=== PATIENT | female | born 2005 | race Two or more races ===

== ENCOUNTER 2025-02-07 22:38 | Emergency (ER) | payer SELFPAY ==
[~2025-02-07] VITALS: Ht 170.2 cm; Wt 51.9 kg
[2025-02-07 23:00] VITALS: BP 118/79; PULSE 85; RESP 16; TEMP 98.2; O2SAT 100
[2025-02-07 23:18] LABS: Basophils # (auto) 0.1 10 ^3/uL (0-0.2); Basophils % (auto) 0.3 % (0.0-2.0); Eosinophils # (auto) 0 10 ^3/uL (0-0.8); Hemoglobin 12.9 g/dL (12.2-16.2); Lymphocytes % (auto) 5.4 % (10.0-50.0); Mean Corpuscular Hemoglobin 28.1 pg (28.0-32.0); Mean Corpuscular Volume 82.9 fL (80.0-100.0); Monocytes # (auto) 0.8 10 ^3/uL (0-1.3); Neutrophils # (auto) 17.5 10 ^3/uL (1.6-8.6); Neutrophils % (auto) 90.3 % (37.0-80.0); Platelet Count (auto) 251 10^3/uL (140-450); Red Blood Cells 4.59 10^6/uL (4.0-5.20); Red Cell Distribution Width 13.3 % (11.8-14.3); White Blood Cell 19.4 10^3/uL (4.4-10.8)
[2025-02-07 23:35] LABS: Alanine Aminotransferase 13 U/L (7-40); Alkaline Phosphatase 59 U/L (46-116); Anion Gap 8 (5-15); BUN/Creatinine Ratio 9.3 (10.0-20.0); Bilirubin, Total 0.8 mg/dL (0.2-1.0); Calcium 10.2 mg/dL (8.7-10.4); Carbon Dioxide 27 mmol/L (20-31); Chloride 105 mmol/L (98-107); Glucose 104 mg/dL (74-106); Lipase 28 U/L (12-53); Potassium 3.8 mmol/L (3.5-5.1); Sodium 140 mmol/L (136-145); Total Protein 7.6 g/dL (5.7-8.2)
[2025-02-07 23:38] LABS: Albumin 4.9 g/dL (3.2-4.8); Aspartate Aminotransferase 12 U/L (13-40); Blood Urea Nitrogen 8 mg/dL (9-23)
[2025-02-07 23:49] LABS: Blood Alcohol < 3.0 mg/dL (<10)
[2025-02-08] MEDS ORDERED: CIPR-173 PO (02:50)
[2025-02-08] MEDS ORDERED: ZOFR4T PO (02:50)
[2025-02-08] MEDS ORDERED: DICY10CA PO (02:50)
[2025-02-08] MEDS ORDERED: ACET500T58 PO (02:50)
--- NOTE | 2025-02-08 02:51 | ED.PDOC ---
GI ASSESSMENT HPI Comments This patient is a 19-year-old female who arrives the ED today with complaints of diffuse abdominal pain that began several hours ago and has continued. Patient denies any recent travel or new food sources. Patient states the pain came on quickly and has been relatively unrelenting. Patient appears to be possibly intoxicated at time of evaluation. Patient denies any fever, but states intermittent nausea or vomiting. Vital signs were stable on arrival. Chief Complaint: Abdominal Pain Time Seen by MD: 22:40 Primary Care Provider: n/a Reviewed Notes: Nurses Notes Allergies: Coded Allergies: NO KNOWN ALLERGIES (Unverified , 02/07/25) Information Source: Patient Mode of Arrival: Wheelchair Timing: Hours Duration: Since onset Prehospital treatment: None Quality: Aching, Cramping Vomitus: Bilious, Food Particles, Soft, Watery, None Severity: Moderate Recent: None Recent Hx of: None Pain Location: Diffuse, Periumbilical Associated sign and symptoms: Nausea, Vomiting, Abdominal Pain Past Medical History PAST MEDICAL HISTORY: Denies Surgical History: Denies all surgeries [employer] History: No Pertinent [employer] History Family History Family History: Reviewed,noncontributory to illness, No family hx of Cancer, No family hx of DM, No family hx of Heart martín, No family hx of HTN, No family hx ofKidney martín, No family hx of Liver martín, No family hx of Lung martín, No family hx of Stroke Social History Smoker: Non-Smoker Alcohol: Denies ETOH Use Drugs: Denies Drug Use Lives In: Home Constitutional: denies: chills, diaphoresis, fatigue, fever, malaise, sweats, weakness, others EENTM: denies: blurred vision, double vision, ear bleeding, ear discharge, ear drainage, ear pain, ear ringing, eye pain, eye redness, hearing loss, mouth pain, mouth swelling, nasal discharge, nose bleeding, nose congestion, nose pain, photophobia, tearing, throat pain, throat swelling, voice changes, others Respiratory: denies: cough, hemoptysis, orthopnea, SOB at rest, shortness of breath, SOB with excertion, stridor, wheezing, others Cardiovascular: denies: chest pain, dizzy spells, diaphoresis, Dyspnea on exertion, edema, irregular heart beat, left arm pain, lightheadedness, palpitations, PND, syncope, others Gastrointestinal: reports: abdominal pain, nausea, vomiting; denies: abdomen distended, blood streaked bowels, constipated, diarrhea, dysphagia, difficulty swallowing, hematemesis, melena, poor appetite, poor fluid intake, rectal bleeding, rectal pain, others Genitourinary: denies: abnormal vagina bleeding, burning, dyspareunia, dysuria, flank pain, frequency, hematuria, incontinence, pain, , vagina discharge, urgency, others Neurological: denies: dizziness, fainting, headache, left sided numbness, left sided weakness, numbness, paresthesia, pre-existing deficit, right sided numbness, right sided weakness, seizure, speech problems, tingling, tremors, weakness, others Musculoskeletal: denies: back pain, gout, joint pain, joint swelling, muscle pain, muscle stiffness, neck pain, others Integumetry: denies: bruises, change in color, change in hair/nails, dryness, laceration, lesions, lumps, rash, wounds, others Allergic/Immunocompromised: denies: Difficulty Healing, Frequent Infections, Hives, Itching, others Hematologic/Lymphatic: denies: anemia, blood clots, easy bleeding, easy bruising, swollen glands, others Endocrine: denies: excessive hunger, excessive sweating, excessive thirst, excessive urination, flushing, intolerance to cold, intolerance to heat, unexplained weight gain, unexplained weight loss, others Psychiatric: denies: anxiety, bipolar disorder, depression, hopeless, panic disorder, schizophrenia, sleepless, suicidal, others Physical Exam General Appearance: Moderate Distress (Due to abdominal pain concerns. Patient was histrionic at time of evaluation.), Normal HEENT: Normal ENT Inspection, Pharynx Normal, TMs Normal Neck: Full Range of Motion, Non-Tender, Normal, Normal Inspection Respiratory: Chest Non-Tender, Lungs Clear, No Accessory Muscle Use, No Respiratory Distress, Normal Breath Sounds Cardiovascular: No Edema, No JVD, No Murmur, No Gallop, Normal Peripheral Pulse s, Regular Rate/Rhythm Breast Exam: Deferred Gastrointestinal: Other ( Diffuse periumbilical tenderness to palpation throughout. Abdomen was reasonably soft. No definitive rebound noted. No signs of trauma.) Genitalia: Deferred Pelvic: Deferred Rectal: Deferred Extremities: No calf tenderness, Normal capillary refill, Normal inspection, Normal range of motion, Non-tender, No pedal edema Neurologic: Alert, No Motor Deficits, No Sensory Deficits Cerebellar Function: Normal Reflexes: Normal Skin: Dry, Normal Color, Warm Lymphatic: No Adenopathy Was a procedure done? Was a procedure done?: No GI differential Dx Differential Diagnosis: Appendicitis, Constipation, Gastritis/PUD, Gastroenteritis, Pancreatitis, UTI X-Ray, Labs, Meds, VS Vital Signs Date Time Temp Pulse Resp B/P (MAP) Pulse Ox O2 Delivery O2 Flow Rate FiO2 02/07/25 23:00 98.2 85 16 118/79 (92) 100 98.2 Lab Test 02/07/25 23:00 Range/Units White Blood Count 19.4 H 4.4-10.8 10^3/uL Red Blood Count 4.59 4.0-5.20 10^6/uL Hemoglobin 12.9 12.2-16.2 g/dL Hematocrit 38.0 36.0-46.0 % Mean Corpuscular Volume 82.9 80.0-100.0 fL Mean Corpuscular Hemoglobin 28.1 28.0-32.0 pg Mean Corpuscular Hemoglobin Concent 34.0 32.0-36.0 g/dL Red Cell Distribution Width 13.3 11.8-14.3 % Platelet Count 251 140-450 10^3/uL Mean Platelet Volume 8.3 6.9-10.8 fL Neutrophils (%) (Auto) 90.3 H 37.0-80.0 % Lymphocytes (%) (Auto) 5.4 L 10.0-50.0 % Monocytes (%) (Auto) 4.0 0.0-12.0 % Eosinophils (%) (Auto) 0.0 0.0-7.0 % Basophils (%) (Auto) 0.3 0.0-2.0 % Neutrophils # (Auto) 17.5 H 1.6-8.6 10 ^3/uL Lymphocytes # (Auto) 1.0 0.4-5.4 10 ^3/uL Monocytes # (Auto) 0.8 0-1.3 10 ^3/uL Eosinophils # (Auto) 0 0-0.8 10 ^3/uL Basophils # (Auto) 0.1 0-0.2 10 ^3/uL Nucleated Red Blood Cells 0.0 % Sodium Level 140 136-145 mmol/L Potassium Level 3.8 3.5-5.1 mmol/L Chloride Level 105 98-107 mmol/L Carbon Dioxide Level 27 20-31 mmol/L Anion Gap 8 5-15 Blood Urea Nitrogen 8 L 9-23 mg/dL Creatinine 0.86 0.550-1.02 mg/dL Glomerular Filtration Rate Calc 99 >90 mL/min BUN/Creatinine Ratio 9.3 L 10.0-20.0 Serum Glucose 104 74-106 mg/dL Calcium Level 10.2 8.7-10.4 mg/dL Total Bilirubin 0.8 0.2-1.0 mg/dL Aspartate Amino Transferase (AST) 12 L 13-40 U/L Alanine Aminotransferase (ALT) 13 7-40 U/L Alkaline Phosphatase 59 46-116 U/L Total Protein 7.6 5.7-8.2 g/dL Albumin 4.9 H 3.2-4.8 g/dL Lipase 28 12-53 U/L Beta HCG, Quantitative 0.5 L 1.5-4.2 mIU/mL Plasma/Serum Blood Alcohol < 3.0 <10 mg/dL X-Ray, Labs, Meds, VS Comment All studies performed the ED were reviewed by me personally. Serum laboratories [place] [id number]. We waited hours for the patient to provide urine, and the patient was very problematic and even ascertaining blood. CT study was unremarkable for any acute process. advise the patient multiple times that he needed to receive urine from her, but the patient does not want to be compliant. Advised patient that I will dose her with a round of ciprofloxacin prior to discharge and send her home with a prescription for antibiotics and supportive medication. Time of 1ST Reevaluation: 02:48 Reevaluation 1ST: Improved Consultation: PCP Patient Education/Counseling: Diagnosis, Treatment Family Education/Counseling: Diagnosis, Treatment Departure 1 Departure Time of Disposition: 02:48 Impression: Primary Impression: Leukocytosis, unspecified Disposition: 01 HOME / SELF CARE / HOMELESS Condition: Stable Additional Instructions: Advised patient utilize antibiotics as directed until completion as well as additional medication as needed. Patient should follow up with the primary care provider in the next few days for re-evaluation. Advised good hydration and healthy nutrition throughout illness event. e-Prescriptions Dicyclomine Hcl (BENTYL CAPSULE) 10 Mg Cp 1 CAP PO Q6HPRN, #20 CAP 0 Refills Prov: LAURYN SHEPHERD PAC 02/08/25 Acetaminophen (Acetaminophen) 500 Mg Tab 500 MG PO Q4HP PRN, #30 TAB Prov: LAURYN SHEPHERD PAC 02/08/25 Ondansetron Odt 4MG Tab (ZOFRAN PO) 4 Mg Tb 4 MG PO Q6HP PRN, #15 TAB ODT TAB-DISSOLVE IN MOUTH, THEN SWALLOW Prov: LAURYN SHEPHERD PAC 02/08/25 Ciprofloxacin Hcl (Cipro) 500 Mg Tab 1 TAB PO BID for 7 Days, #14 TAB Prov: LAURYN SHEPHERD PAC 02/08/25 Discharged With: Self, Friend Critical Care Note Critical Care Time?: No Stability Stability form required: No Heart Score Heart Score: Heart Score Response (Comments) Value History N/A 0 EKG N/A 0 Age N/A 0 Risk Factors N/A 0 Troponin N/A 0 Total 0 LAURYN SHEPHERD PAC February 08, 2025 02:51
[2025-02-08] MEDS: DICYCLOMINE HCL (10MG/ML) 2 ML AMPULE IM ONE (02:57)
[2025-02-08] MEDS: ONDANSETRON HCL 4 MG/2 ML VIAL IM ONE (02:57)
--- NOTE | 2025-02-08 03:46 | DVH ---
Exam: CT CT AB PEL WO CON-NO ORAL OR IV History: Diffuse abdominal pain Comparison Study: None Technique: Multidetector spiral CT of the abdomen was performed from lung bases to pubic symphysis. I maging was performed without IV contrast. Axial, coronal and sagittal multiplanar reformats were obta ined from the axial data set by the technologist. Radiation Dose : 1. Abdomen/Pelvis: CTDIvol 5.65 mGy, DLP 298.42 mGy*cm. Findings: Evaluation of solid organs is limited due to lack of intravenous contrast use. Lung Bases: No acute or significant lung base finding. Normal heart size. No pleural or pericardial effusion. Liver: The liver is normal in size. No focal lesions. Gallbladder and Biliary Tree: Unremarkable Spleen: Unremarkable Pancreas: The pancreas is grossly normal in appearance. Adrenal Glands: Unremarkable Kidneys: Kidneys are grossly normal without calculi or hydronephrosis. Bladder: Grossly unremarkable for degree of distention. Bowel: The stomach is grossly normal in appearance. Small bowel and colon are normal in caliber and d istribution. The appendix is partially fluid-filled and dilated, measuring up to 11 mm in diameter, w ith periappendiceal inflammatory changes. No evidence of perforation or periappendiceal abscess. Ascites: Small volume likely physiologic pelvic free fluid. Lymphadenopathy: No mesenteric, retroperitoneal or periportal lymphadenopathy. Abdominal Wall and Mesentery: Unremarkable. Vasculature: The visualized abdominal aorta is normal in size and caliber. Evaluation of abdominal a nd pelvic vessels is limited due to lack of intravenous contrast. Pelvic Organs: Unremarkable Musculoskeletal: No aggressive focal bony lesions, acute fractures or dislocation. IMPRESSION: 1. Acute non perforated appendicitis. 2. These findings were discussed with and acknowledged by Dr. Reno of the emergency department at 3 :41 a.m. On February 08, 2025. Radiation optimization: All CT scans at this facility use at least one of these dose optimization iris hniques: automated exposure control mA and/or kV adjustment per patient size (includes targeted exam s where dose is matched to clinical indication) or iterative reconstruction.
[2025-02-08] MEDS: CIPROFLOXACIN HCL 500 MG TAB PO ONE ×2 (03:47)
--- NOTE | 2025-02-08 03:53 | ED.PDOC ---
Departure 1 Departure Time of Disposition: 03:51 (I received a call from the radiologist with a critical finding after patient was discharge. Unfortunately was able to stay with the patient removing the premises. Patient has a acute appendicitis. We will empirically cover patient with antibiotics and the patient for further workup and surgical consult.) Impression: Primary Impression: Acute appendicitis Qualified Codes: K35.30 - Acute appendicitis with localized peritonitis, without perforation or gangrene Additional Impression: Intractable abdominal pain Disposition: ADMITTED INPATIENT Admit to: Med Surg Condition: Serious e-Prescriptions Dicyclomine Hcl (BENTYL CAPSULE) 10 Mg Cp 1 CAP PO Q6HPRN, #20 CAP 0 Refills Prov: LAURYN SHEPHERD PAC 02/08/25 Acetaminophen (Acetaminophen) 500 Mg Tab 500 MG PO Q4HP PRN, #30 TAB Prov: LAURYN SHEPHERD PAC 02/08/25 Ondansetron Odt 4MG Tab (ZOFRAN PO) 4 Mg Tb 4 MG PO Q6HP PRN, #15 TAB ODT TAB-DISSOLVE IN MOUTH, THEN SWALLOW Prov: LAURYN SHEPHERD PAC 02/08/25 Ciprofloxacin Hcl (Cipro) 500 Mg Tab 1 TAB PO BID for 7 Days, #14 TAB Prov: LAURYN SHEPHERD PAC 02/08/25 Discharged With: Self, Friend Critical Care Note Critical Care Time?: Yes Critical care comment: Intractable abdominal pain Authorized and Performed by: Yayo Reno MD Total critical care time: Approximately 38 minutes Due to a high probability of clinically significant, life threatening de terioration, the patient required my highest level of preparedness to intervene emergently and I personally spent this critical care time directly and personally managing the patient. This critical care time included obtaining a history; examining the patient; pulse oximetry; ordering and review of studies; arranging urgent treatment with development of a management plan; evaluation of patient's response to treatment; frequent reassessment; and, discussions with other providers. This critical care time was performed to assess and manage the high probability of imminent, life-threatening deterioration that could result in multi-organ failure. It was exclusive of separately billable procedures and treating other patients and teaching time. Please see my other sections and the rest of the note for further information on patient assessment and treatment. YAYO RENO MD February 08, 2025 03:53
[2025-02-08] MEDS ORDERED: ONDANSETRON HCL 4 MG/2 ML VIAL IV ONE (04:00)
[2025-02-08] MEDS ORDERED: SODIUM CHLORIDE 0.9% 1,000 ML IV ONE (04:00)
[2025-02-08] MEDS ORDERED: metroNIDAZOLE 500MG/100ML 100 ML IV ONE (04:00)
[2025-02-08] MEDS ORDERED: ceFAZolin 2 GM/D5W50ml 50 ML IV ONE (04:00)
[2025-02-08] MEDS ORDERED: MORPHINE SULFATE 4 MG/ML SYR/VIAL IV ONE (04:00)
== END 2025-02-08 04:35 | disposition left against medical advice (07) ==
LOC: ER 22:38
DX: D72.829 Elevated white blood cell count, unspecified (principal); Z79.899 Other long term (current) drug therapy
CPT/HCPCS: 36415; 74176; 80053; 80320; 83690; 84702; 85025; J2405